=== PATIENT | female | born 1985 | race Caucasian/White ===

== ENCOUNTER 2018-03-20 10:15 | Outpatient (CLI) | payer OTHER ==
[2018-03-20 11:08] LABS: eGFR (Non-African) > 60
== END 2018-03-20 10:16 ==
LOC: LAB 10:15
PROVIDERS: ATTEND Physician Assistant
DX: Z00.00 Encounter for general adult medical examination without abnormal findings (principal); Z13.6 Encounter for screening for cardiovascular disorders
CPT/HCPCS: 36415; 80053; 80061